=== PATIENT | male | born 1990 | race Caucasian/White ===

== ENCOUNTER 2016-10-27 18:36 | Inpatient (IN) | payer SELFPAY ==
[~2016-10-27] VITALS: Ht 172.7 cm; Wt 67.1 kg
[~2016-10-27 18:36] MED LIST: ACET-749 PO; AMPH30CA3 PO; MIRT45TA PO
[2016-10-27] MEDS ORDERED: SODIUM CHLORIDE 0.9% 1000ML 1,000 ML IV STA (18:59)
[2016-10-27] MEDS ORDERED: CIPROFLOXACIN 400MG / 200ML D5W IV STA (19:02)
[2016-10-27 19:29] LABS: BASO % 0.3 %; BASO ABS # 0.03 K/uL (0-0.2); COMPLETE YES; EOS % 0.2 %; HEMATOCRIT 47.6 % (42-52); IG% 0.2 %; LYMPH % 11.5 %; LYMPH ABS # 1.06 K/uL (1.2-3.4); MEAN CELL VOLUME 87.2 fL (80-100); MEAN CORPUSCULAR HEMOGLOBIN 27.8 pg (25-34); MEAN CORPUSCULAR HGB CONC 31.9 g/dl (32-36); NEUT % 76.8 %; PLATELET COUNT 228 K/uL (130-400); RED BLOOD COUNT 5.46 M/uL (4.7-6.1); WHITE BLOOD COUNT 9.21 K/uL (4.8-10.8)
[2016-10-27 19:40] LABS: INR 1.2 (0.9-1.1); PARTIAL THROMBOPLASTIN RATIO 1.3; PROTHROMBIN TIME (PATIENT) 12.6 SECONDS (9.0-12.0)
[2016-10-27 19:45] LABS: BUN/CREATININE RATIO 11.2 (10-20); CALCIUM 8.9 mg/dl (8.5-10.1); CREATININE 1.3 mg/dl (0.60-1.40); POTASSIUM 3.7 mmol/L (3.5-5.1)
[2016-10-27] MEDS ORDERED: CANNABIS INH (19:48)
[2016-10-27 19:49] LABS: URINE APPEARANCE CLEAR (CLEAR); URINE COLOR DK YELLOW; URINE NITRITE NEG (NEG); URINE SPECIFIC GRAVITY 1.033 (1.000-1.030); UROBILINOGEN NEG (NEG)
[2016-10-27 19:55] LABS: MANUAL MICROSCOPIC REQUIRED? NO; REVIEW REQ? NO; URINE BILIRUBIN NEG (NEG)
[2016-10-27 20:24] LABS: LYME DISEASE AB IGG NEG (NEG); LYME DISEASE AB IGM NEG (NEG)
--- NOTE | 2016-10-27 20:32 | DIAGNOSTIC IMAGING REPORT ---
ABDOMEN AND PELVIS CT WITHOUT CONTRAST CT DOSE: HISTORY: left abdominal pain eval for stone TECHNIQUE: Multiaxial CT images of the abdomen and pelvis were performed without the use of intravenous and oral contrast according to the standard department stone protocol. COMPARISON STUDY: None. FINDINGS: Focal left lower lobe consolidation consistent with a pneumonia. The right lung base is clear. No fractures within the visualized osseous structures. No renal or ureteral stones. No hydronephrosis. The bladder is unremarkable. Punctate calcifications in the left deep pelvis are consistent with phleboliths. Suboptimal evaluation for bowel pathology due to the lack of intravenous and oral contrast. However, there is no definite bowel wall thickening or obstruction. No retroperitoneal lymphadenopathy. The unenhanced liver, spleen, adrenal glands, pancreas, and gallbladder are unremarkable. IMPRESSION: 1. Focal consolidation within the left lower lobe consistent with a pneumonia. 2. No renal stones or hydronephrosis Electronically signed by: Dany Corado M.D. 10/27/2016 8:30 PM Dictated Date/Time: 10/27/2016 8:23 PM
--- NOTE | 2016-10-27 20:34 | DIAGNOSTIC IMAGING REPORT ---
LUMBAR SPINE CT WITH INTRAVENOUS CONTRAST CT DOSE: HISTORY: Back pain. eval for abscess TECHNIQUE: Multiaxial CT images of the lumbar spine were performed and reformatted in the sagittal and coronal plane following the use of intravenous contrast. COMPARISON: None. FINDINGS: No fracture or subluxation. Paraspinal soft tissues are unremarkable. Paraspinal soft tissues are unremarkable. Evaluation for an epidural abnormality such as abscesses is essentially nondiagnostic by CT. However, there are no definite abnormalities within the central canal and no definite central canal or neural foraminal narrowing. Disc spaces are preserved. No evidence for discitis/osteomyelitis by CT technique. IMPRESSION: No significant abnormality within the lumbar spine by CT technique. Electronically signed by: Dany Corado M.D. 10/27/2016 8:33 PM Dictated Date/Time: 10/27/2016 8:30 PM
--- NOTE | 2016-10-27 20:37 | DIAGNOSTIC IMAGING REPORT ---
LEFT FOOT CT CT DOSE: 1509.82 mGy.cm HISTORY: Left foot pain. left foot eval for foreign body/abscess TECHNIQUE: Multiaxial CT images of the left foot were performed and reformatted in the sagittal and coronal plane following the use of intravenous contrast. COMPARISON: None. FINDINGS: No fracture or dislocation within the left foot. No radiopaque foreign bodies. No soft tissue abscess identified. No evidence for osteomyelitis. IMPRESSION: No radiopaque foreign bodies or abscess within the left foot. Electronically signed by: Dany Corado M.D. 10/27/2016 8:41 PM Dictated Date/Time: 10/27/2016 8:33 PM
--- NOTE | 2016-10-27 21:11 | DIAGNOSTIC IMAGING REPORT ---
CHEST 2 VIEWS ROUTINE HISTORY: Abnormal CT. Fever. COMPARISON: Abdomen and pelvis CT 10/27/2016. FINDINGS: No pneumothorax. No pleural effusions. The heart is normal in size. The right lung is clear. Focal left lower lobe consolidation is again noted. IMPRESSION: Focal left lower lobe consolidation consistent with a pneumonia. Electronically signed by: Dany Corado M.D. 10/27/2016 9:10 PM Dictated Date/Time: 10/27/2016 9:09 PM
[2016-10-27] MEDS ORDERED: ACETAMINOPHEN 325 MG TAB PO ONE (21:16)
[2016-10-27] MEDS ORDERED: ACETAMINOPHEN 325 MG TAB PO PRN (21:30)
[2016-10-27] MEDS ORDERED: PIPERACILLIN/TAZOBACTAM 4.5 GM/100ML D5W IV STA (21:35)
[2016-10-27] MEDS ORDERED: DOXYCYCLINE HYCLATE 100 MG CAP PO ONE (21:48)
[2016-10-27] MEDS ORDERED: DIPHTHERIA/TETANUS/PERTUSSIS 0.5 ML SYR/VIAL IM. ONE (22:00)
[2016-10-27] MEDS ORDERED: PNEUMOCOCCAL POLYSACCHARIDES 25 MCG/0.5 ML VIAL/SYR IM. ONE (22:15)
[2016-10-27] MEDS ORDERED: INFLUENZA VIRUS QUAD VACCINE 0.5 ML SYR IM. ONE (22:15)
[2016-10-27] MEDS ORDERED: NSS + 20MEQ KCL 1000ML 1,000 ML IV ONE (22:15)
[2016-10-27] MEDS ORDERED: ONDANSETRON INJ 2 MG/ML 2 ML VIAL IV PRN (22:15)
[2016-10-27] MEDS ORDERED: KETOROLAC TROMETHAMINE 30 MG/ML VIAL IV PRN (22:15)
[2016-10-27] MEDS ORDERED: IBUPROFEN 200 MG TAB PO PRN (22:15)
[2016-10-27] MEDS ORDERED: MAGNESIUM SULFATE 1GM / D5W 1 GM in PREMIXED IN D5W 100 ML IV ONE (22:15)
[2016-10-27] MEDS ORDERED: PROMETHAZINE HCL INJ 12.5 MG in SODIUM CHLORIDE 0.9% 50ML 50 ML IV PRN (22:15)
[2016-10-27] MEDS: ENOXAPARIN 30 MG/0.3 ML SYR SQ SCH (23:15)
--- NOTE | 2016-10-27 23:22 | EMERGENCY ROOM VISIT NOTE ---
History Report prepared by Javid: Angelica Vera Under the Supervision of: Dr. Pito Lopez M.D. First contact with patient: 18:51 Chief Complaint: ILLNESS Stated Complaint: NAIL THROUGH L FT YESTERDAY, FEVER History of Present Illness The patient is a 26 year old male who presents to the Emergency Room with complaints of persistent lower back pain starting today. The patient stepped on a kecia nail yesterday. It went through his sneaker and into his left foot. He is unsure how far it went through, but he does not believe it came out the top of his foot. He pulled out the nail promptly afterwards. His foot was bleeding yesterday but has stopped. Today the pain is going up into his knee and lower back. His back pain is worse than the pain in his foot. He started feeling fatigued and slow today. He had a headache earlier today and almost vomited on the way to the ED. He reports neck stiffness and left abdominal pain. He has right elbow pain which is from a previous injury. He denies any cold symptoms, urinary symptoms, or cough. He has a history of hepatitis C. He denies any recent IV drug use. He admits to marijuana use. He has a family history of kidney stones, but has never had them himself. Source of History: patient Onset: today Position: back (lower) Quality: other (pain) Timing: other (persistent) Associated Symptoms: + headache, + nausea, + abdominal pain, + fatigue, No cough, No vomiting, No urinary symptoms Note: Pt reports left foot pain, left leg pain, neck stiffness. Review of Systems See HPI for pertinent positives & negatives. A total of 10 systems reviewed and were otherwise negative. Past Medical & Surgical Medical Problems: (1) ADHD (2) Pneumonia Family History Heart disease Hypertension Social History Smoking Status: Never Smoker Alcohol Use: none Drug Use: marijuana Marital Status: single Housing Status: lives with family Current/Historical Medications Scheduled [Cannabis], INH BID Allergies Coded Allergies: Methylphenidate (Verified Allergy, Severe, HIVES, 08/10/15) Physical Exam Vital Signs Date Time Temp Pulse Resp B/P (MAP) Pulse Ox O2 Delivery O2 Flow Rate FiO2 10/27/16 20:34 85 16 140/67 98 Room Air 10/27/16 19:20 96 16 131/73 97 Room Air 10/27/16 19:03 102 10/27/16 18:47 37.8 96 16 124/70 97 Room Air Physical Exam Constitutional: Vital signs reviewed. Eyes: Pupils are equal round reactive to light. Conjunctiva are noninjected. ENT: Pharynx is clear without erythema or exudate. Mucous membranes are moist. Neck supple without meningeal signs. Respiratory: Clear to auscultation bilaterally. Breath sounds are equal bilaterally. Cardiovascular: Regular rate and rhythm. No rubs or gallops. GI: Soft, nondistended with mild left mid abdominal tenderness. No guarding. Bowel sounds are present. Musculoskeletal: No midline tenderness to the thoracic spine, mild midline tenderness to the lower lumbar spine, no CVA tenderness. Puncture wound to the plantar aspect of the left foot between the first and second toe with diffuse tenderness, no evidence of lymphangitis or groin lymphadenopathy on the left side. Integumentary: No cyanosis. Neurological: The patient is awake and alert. No focal deficits. Psychiatric: Normal affect. Medical Decision & Procedures ER Provider Diagnostic Interpretation: X-ray results as stated below per interpretation by me and the radiologist. Radiology results as stated below per my review and the radiologist's interpretation: ABDOMEN AND PELVIS CT WITHOUT CONTRAST CT DOSE: HISTORY: left abdominal pain eval for stone TECHNIQUE: Multiaxial CT images of the abdomen and pelvis were performed without the use of intravenous and oral contrast according to the standard department stone protocol. COMPARISON STUDY: None. FINDINGS: Focal left lower lobe consolidation consistent with a pneumonia. The right lung base is clear. No fractures within the visualized osseous structures. No renal or ureteral stones. No hydronephrosis. The bladder is unremarkable. Punctate calcifications in the left deep pelvis are consistent with phleboliths. Suboptimal evaluation for bowel pathology due to the lack of intravenous and oral contrast. However, there is no definite bowel wall thickening or obstruction. No retroperitoneal lymphadenopathy. The unenhanced liver, spleen, adrenal glands, pancreas, and gallbladder are unremarkable. IMPRESSION: 1. Focal consolidation within the left lower lobe consistent with a pneumonia. 2. No renal stones or hydronephrosis Electronically signed by: Dany Corado M.D. 10/27/2016 8:30 PM Dictated Date/Time: 10/27/2016 8:[address] WITH INTRAVENOUS CONTRAST CT DOSE: HISTORY: Back pain. eval for abscess TECHNIQUE: Multiaxial CT images of the lumbar spine were performed and reformatted in the sagittal and coronal plane following the use of intravenous contrast. COMPARISON: None. FINDINGS: No fracture or subluxation. Paraspinal soft tissues are unremarkable. Paraspinal soft tissues are unremarkable. Evaluation for an epidural abnormality such as abscesses is essentially nondiagnostic by CT. However, there are no definite abnormalities within the central canal and no definite central canal or neural foraminal narrowing. Disc spaces are preserved. No evidence for discitis/osteomyelitis by CT technique. IMPRESSION: No significant abnormality within the lumbar spine by CT technique. Electronically signed by: Dany Corado M.D. 10/27/2016 8:33 PM Dictated Date/Time: 10/27/2016 8:[address] DOSE: 1509.82 mGy.cm HISTORY: Left foot pain. left foot eval for foreign body/abscess TECHNIQUE: Multiaxial CT images of the left foot were performed and reformatted in the sagittal and coronal plane following the use of intravenous contrast. COMPARISON: None. FINDINGS: No fracture or dislocation within the left foot. No radiopaque foreign bodies. No soft tissue abscess identified. No evidence for osteomyelitis. IMPRESSION: No radiopaque foreign bodies or abscess within the left foot. Electronically signed by: Dany Corado M.D. 10/27/2016 8:41 PM Dictated Date/Time: 10/27/2016 8:33 PM CHEST 2 VIEWS ROUTINE HISTORY: Abnormal CT. Fever. COMPARISON: Abdomen and pelvis CT 10/27/2016. FINDINGS: No pneumothorax. No pleural effusions. The heart is normal in size. The right lung is clear. Focal left lower lobe consolidation is again noted. IMPRESSION: Focal left lower lobe consolidation consistent with a pneumonia. Electronically signed by: Dany Corado M.D. 10/27/2016 9:10 PM Dictated Date/Time: 10/27/2016 9:09 PM Laboratory Results 10/27/16 19:15 Red Blood Count 5.46, Mean Corpuscular Volume 87.2, Mean Corpuscular Hemoglobin 27.8, Mean Corpuscular Hemoglobin Concent 31.9, Mean Platelet Volume 10.0, Neutrophils (%) (Auto) 76.8, Lymphocytes (%) (Auto) 11.5, Monocytes (%) (Auto) 11.0, Eosinophils (%) (Auto) 0.2, Basophils (%) (Auto) 0.3, Neutrophils # (Auto ) 7.07, Lymphocytes # (Auto) 1.06, Monocytes # (Auto) 1.01, Eosinophils # (Auto ) 0.02, Basophils # (Auto) 0.03 10/27/16 19:15 Test 10/27/16 19:05 10/27/16 19:15 10/27/16 19:20 Urine Color DK YELLOW Urine Appearance CLEAR (CLEAR) Urine pH 6.0 (4.5-7.5) Urine Specific [place] 1.033 (1.000-1.030) Urine Protein NEG (NEG) Urine Glucose (UA) NEG (NEG) Urine Ketones 3+ (NEG) Urine Occult Blood NEG (NEG) Urine Nitrite NEG (NEG) Urine Bilirubin NEG (NEG) Urine Urobilinogen NEG (NEG) Urine Leukocyte Esterase NEG (NEG) White Blood Count 9.21 K/uL (4.8-10.8) Red Blood Count 5.46 M/uL (4.7-6.1) Hemoglobin 15.2 g/dL (14.0-18.0) Hematocrit 47.6 % (42-52) Mean Corpuscular Volume 87.2 fL (80-100) Mean Corpuscular Hemoglobin 27.8 pg (25-34) Mean Corpuscular Hemoglobin Concent 31.9 g/dl (32-36) Platelet Count 228 K/uL (130-400) Mean Platelet Volume 10.0 fL (7.4-10.4) Neutrophils (%) (Auto) 76.8 % Lymphocytes (%) (Auto) 11.5 % Monocytes (%) (Auto) 11.0 % Eosinophils (%) (Auto) 0.2 % Basophils (%) (Auto) 0.3 % Neutrophils # (Auto) 7.07 K/uL (1.4-6.5) Lymphocytes # (Auto) 1.06 K/uL (1.2-3.4) Monocytes # (Auto) 1.01 K/uL (0.11-0.59) Eosinophils # (Auto) 0.02 K/uL (0-0.5) Basophils # (Auto) 0.03 K/uL (0-0.2) RDW Standard Deviation 40.6 fL (36.4-46.3) RDW Coefficient of Variation 12.6 % (11.5-14.5) Immature Granulocyte % (Auto) 0.2 % Immature Granulocyte # (Auto) 0.02 K/uL (0.00-0.02) Prothrombin Time 12.6 SECONDS (9.0-12.0) Prothromb Time International Ratio 1.2 (0.9-1.1) Activated Partial Thromboplast Time 32.7 SECONDS (21.0-31.0) Partial Thromboplastin Ratio 1.3 Anion Gap 7.0 mmol/L (3-11) Est Creatinine Clear Calc Drug Dose 81.7 ml/min Estimated GFR () 87.3 Estimated GFR (Non- 75.3 BUN/Creatinine Ratio 11.2 (10-20) Calcium Level 8.9 mg/dl (8.5-10.1) Magnesium Level 1.6 mg/dl (1.8-2.4) Total Bilirubin 0.7 mg/dl (0.2-1) Direct Bilirubin 0.2 mg/dl (0-0.2) Aspartate Amino Transf (AST/SGOT) 19 U/L (15-37) Alanine Aminotransferase (ALT/SGPT) 38 U/L (12-78) Alkaline Phosphatase 60 U/L (45-117) Total Protein 7.6 gm/dl (6.4-8.2) Albumin 4.1 gm/dl (3.4-5.0) Lipase 62 U/L (73-393) Lyme Disease IgG Antibody NEG (NEG) Lyme Disease IgM Antibody NEG (NEG) Bedside Lactic Acid Venous 0.91 mmol/L (0.90-1.70) Laboratory results as reviewed by me. Medications Administered Medications (Trade) Dose Ordered Sig/Timoteo Route Start Time Stop Time Status Last Admin Dose Admin Sodium Chloride 1,000 ml @ 999 mls/hr Q1H1M STAT IV 10/27/16 18:59 10/27/16 19:59 DC 10/27/16 19:37 999 MLS/HR Ciprofloxacin/ Dextrose (Cipro / D5W) 400 mg NOW STAT IV 10/27/16 19:02 10/27/16 19:03 DC 10/27/16 19:38 400 MG ED Course 1855: The patient was evaluated in room B5. A complete history and physical exam was performed. 1858: NSS 1000 ml @ 999 mls/hr IV. 1902: Ciprofloxacin/Dextrose 400 mg IV. 2104: I reevaluated the patient. I discussed the results and treatment plan with him. I recommended admission. He verbalized understanding and agreement. He will be evaluated for further management. 2114: I spoke with Boy Calzada [facility] hospitalist. We discussed the patient and his results. The patient will be further evaluated by him. Medical Decision This is a 26-year-old male presents with fever, back pain, foot pain and abdominal pain. Differential diagnosis includes abscess, cellulitis, osteomyelitis, kidney stone, UTI, pyelonephritis. I did perform a limited focused review of portions of the patient's old chart on the electronic medical record. The patient has had no recent pertinent visits to this hospital. Medication Reconciliation: I attest that I have personally reviewed the patient' s current medication list. Blood Pressure Screening: Patient was found to have a slightly elevated blood pressure due to circumstances. I do not believe that the patient requires hypertension monitoring. I did evaluate the patient as noted above. The patient is presenting with a fever today. He stepped on a kecia nail yesterday through his sneaker. He has pain into his leg as well as traveling into his back. He denies any shortness of breath, chest pain or cold symptoms. IV access was established. He did not want any pain medicines. I did order blood cultures. I did order a urinalysis. I did initially treat the patient with IV Cipro to cover for potential pseudomonal infection. I did order and review the patient's blood work as noted in the electronic medical record. I did order a CT of the foot, lumbar spine, and Abdomen and pelvis. I did review the images myself as well as the radiology report as described above. There is no evidence of abscess or retained foreign body in the foot. Lumbar spine CT is unremarkable. Abdominal and pelvic CT demonstrated a left lower lobe pneumonia. I did order and personally review the patient's chest x-ray as described above. He does have a left lower lobe infiltrate. I did discuss the test results with the patient. I did recommend hospitalization for IV antibiotics. I did treat him with IV Zosyn to cover his pneumonia and pseudomonas. I did discuss case with the hospitalist and human services case manager. Consults Time Called: 2109 Consulting Physician: Boy Calzada hospitalist Returned Call: 2114 I spoke with him. We discussed the patient and his results. The patient will be further evaluated by him. Impression Primary Impression: Left foot infection Additional Impressions: Puncture wound Left lower lobe pneumonia Scribe Attestation The scribe's documentation has been prepared under my direct and personally reviewed by me in its entirety. I confirm that the note above accurately reflects all work, treatment, procedures, and medical decision making performed by me. Departure Information Dispostion Being Evaluated By Hospitalist Referrals No Doctor, Assigned (PCP) Patient Instructions My [facility] Problem Qualifiers Additional Impressions: Left lower lobe pneumonia Pneumonia type: due to unspecified organism Qualified Codes: J18.1 - Lobar pneumonia, unspecified organism
[2016-10-27 23:28] VITALS: BP 126/75; PULSE 82; TEMP 37.4; O2SAT 96
[2016-10-28] VITALS (7 sets, daily range): BP systolic 120–138; BP diastolic 73–79; PULSE 77–83; TEMP 36.9–37.8; O2SAT 97–98; Ht 172.7 cm; Wt 67.1 kg
--- NOTE | 2016-10-28 01:28 | History and Physical ---
History & Physical Date & Time of Service: Oct 28, 2016 at 01:28 Chief Complaint: feve, chills, pleuritic R back pain Primary Care Physician: No Doctor, Assigned Px intends to re-establish care w/ Dr. Gunderson upon discharge. History of Present Illness Source: patient, family Yesterday patient stepped on a kecia nail with his left foot. Achy pain swelling. No consultations done. Today patient wasn't feeling well fever chills pleuritic left back pain w shortness of breath. Patient had emesis. No cough symptoms. At the emergency room patient received Zosyn for pneumonia/left foot infection. 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, admits to marijuana use, contractor Past history of opioid abuse as as per sister Smoking Status: Current Every Day Smoker Drug Use: marijuana Marital Status: single Immunizations Influenza Vaccine Date: Oct 28, 2016 History of Pneumococcal: No Other Immunizations: Seasonal flu vax 2002, DTAP 1990 Multi-Drug Resistant Organisms History of MDRO: No Allergies Coded Allergies: Methylphenidate (Verified Allergy, Severe, HIVES, 08/10/15) Home Medications Scheduled [Cannabis], INH BID Review of Systems as per HPI, all other ROS negative Physical Exam Vital Signs Date Time Temp Pulse Resp B/P (MAP) Pulse Ox O2 Delivery O2 Flow Rate FiO2 10/28/16 00:30 Room Air 10/28/16 00:00 Room Air 10/27/16 23:28 37.4 82 16 126/75 (92) 96 Room Air 10/27/16 22:12 85 16 136/69 96 10/27/16 20:34 85 16 140/67 98 Room Air 10/27/16 19:20 96 16 131/73 97 Room Air 10/27/16 19:03 102 10/27/16 18:47 37.8 96 16 124/70 97 Room Air General Appearance: + pertinent finding (anxious) Head: normocephalic Eyes: normal inspection, + pertinent finding ENT: + pertinent finding (poor dentition) Neck: supple Respiratory/Chest: lungs clear, + pertinent finding (decrease effort) Cardiovascular: regular rate, rhythm Abdomen/GI: soft Extremities/Musculoskelatal: + pertinent finding (tender swelling left foot plantar aspect) Neurologic/Psych: alert Skin: normal color Diagnostics Laboratory Results Results Past 24 Hours Test 10/27/16 19:05 10/27/16 19:15 10/27/16 19:20 Range/Units Urine Color DK YELLOW Urine Appearance CLEAR CLEAR Urine pH 6.0 4.5-7.5 Urine Specific [place] 1.033 1.000-1.030 Urine Protein NEG NEG Urine Glucose (UA) NEG NEG Urine Ketones 3+ NEG Urine Occult Blood NEG NEG Urine Nitrite NEG NEG Urine Bilirubin NEG NEG Urine Urobilinogen NEG NEG Urine Leukocyte Esterase NEG NEG White Blood Count 9.21 4.8-10.8 K/uL Red Blood Count 5.46 4.7-6.1 M/uL Hemoglobin 15.2 14.0-18.0 g/dL Hematocrit 47.6 42-52 % Mean Corpuscular Volume 87.2 80-100 fL Mean Corpuscular Hemoglobin 27.8 25-34 pg Mean Corpuscular Hemoglobin Concent 31.9 32-36 g/dl Platelet Count 228 130-400 K/uL Mean Platelet Volume 10.0 7.4-10.4 fL Neutrophils (%) (Auto) 76.8 % Lymphocytes (%) (Auto) 11.5 % Monocytes (%) (Auto) 11.0 % Eosinophils (%) (Auto) 0.2 % Basophils (%) (Auto) 0.3 % Neutrophils # (Auto) 7.07 1.4-6.5 K/uL Lymphocytes # (Auto) 1.06 1.2-3.4 K/uL Monocytes # (Auto) 1.01 0.11-0.59 K/uL Eosinophils # (Auto) 0.02 0-0.5 K/uL Basophils # (Auto) 0.03 0-0.2 K/uL RDW Standard Deviation 40.6 36.4-46.3 fL RDW Coefficient of Variation 12.6 11.5-14.5 % Immature Granulocyte % (Auto) 0.2 % Immature Granulocyte # (Auto) 0.02 0.00-0.02 K/uL Prothrombin Time 12.6 9.0-12.0 SECONDS Prothromb Time International Ratio 1.2 0.9-1.1 Activated Partial Thromboplast Time 32.7 21.0-31.0 SECONDS Partial Thromboplastin Ratio 1.3 Sodium Level 136 136-145 mmol/L Potassium Level 3.7 3.5-5.1 mmol/L Chloride Level 103 98-107 mmol/L Carbon Dioxide Level 26 21-32 mmol/L Anion Gap 7.0 3-11 mmol/L Blood Urea Nitrogen 15 7-18 mg/dl Creatinine 1.30 0.60-1.40 mg/dl Est Creatinine Clear Calc Drug Dose 81.7 ml/min Estimated GFR () 87.3 Estimated GFR (Non- 75.3 BUN/Creatinine Ratio 11.2 10-20 Random Glucose 98 70-99 mg/dl Calcium Level 8.9 8.5-10.1 mg/dl Magnesium Level 1.6 1.8-2.4 mg/dl Total Bilirubin 0.7 0.2-1 mg/dl Direct Bilirubin 0.2 0-0.2 mg/dl Aspartate Amino Transf (AST/SGOT) 19 15-37 U/L Alanine Aminotransferase (ALT/SGPT) 38 12-78 U/L Alkaline Phosphatase 60 45-117 U/L Total Protein 7.6 6.4-8.2 gm/dl Albumin 4.1 3.4-5.0 gm/dl Lipase 62 73-393 U/L Lyme Disease IgG Antibody NEG NEG Lyme Disease IgM Antibody NEG NEG Bedside Lactic Acid Venous 0.91 0.90-1.70 mmol/L Microbiology Results 10/27/16 Blood Culture, Received Pending 10/27/16 Blood Culture, Received Pending 10/27/16 Urine Culture, Received Pending Diagnostic Radiology CT abdomen and pelvis pneumonia left CT left foot no abscess no foreign bodies Impression Assessment and Plan AP Pneumonia Atypical versus aspiration No overt sepsis Traumatic nail puncture wound< left foot History ADHD not on meds, stable as per px Ongoing tobacco abuse past history opioid drug abuse as per family GMF Tetanus toxoid for traumatic nail puncture wound Doxycycline, Zosyn Nicotine patch DVT prophylaxis Lovenox subcutaneous Full code Advanced Directives Existing Living Will: No Existing Power of Power Line Installer And Repairer: No VTE Prophylaxis VTE Risk Assessment Done? Y/N: Yes Risk Level: Moderate
[2016-10-28] MEDS: PIPERACILL/TAZOBAC IV 3.375 GM in DEXTROSE 5% 100ML IV SCH ×3 (04:51→20:06)
[2016-10-28 06:56] LABS: BASO % 0.2 %; BASO ABS # 0.02 K/uL (0-0.2); COMPLETE YES; EOS % 0.2 %; HEMATOCRIT 43.9 % (42-52); IG% 0.3 %; LYMPH ABS # 0.62 K/uL (1.2-3.4); MEAN CELL VOLUME 87.5 fL (80-100); MEAN CORPUSCULAR HEMOGLOBIN 29.7 pg (25-34); MEAN CORPUSCULAR HGB CONC 33.9 g/dl (32-36); MEAN PLATELET VOLUME 10.5 fL (7.4-10.4); MONO % 11.3 %; PLATELET COUNT 197 K/uL (130-400); RED BLOOD COUNT 5.02 M/uL (4.7-6.1); WHITE BLOOD COUNT 10.25 K/uL (4.8-10.8)
[2016-10-28] MEDS: NICOTINE 7 MG/24 HR TDSY TD SCH (08:44)
[2016-10-28] MEDS: DOXYCYCLINE HYCLATE 100 MG CAP PO SCH ×2 (08:46→21:44)
[2016-10-28] MEDS ORDERED: PIPERACILL/TAZOBAC CONSULT ACTIVE PRN (09:00)
[2016-10-28] MEDS ORDERED: DIPHTHERIA/TETANUS/PERTUSSIS 0.5 ML SYR/VIAL IM. ONE (11:00)
--- NOTE | 2016-10-28 19:48 | Progress Note ---
Medicine Progress Note Date & Time of Visit: Oct 28, 2016 at 10:30 . Subjective Admitted last night with puncture wound left foot + pneumonia. Not sure when his last tetanus booster was. Afebrile. Minimal cough. No SOB. No nausea, vomiting, diarrhea. Persistent pain left foot. . Objective Last 8 Hrs Date Time Temp Pulse Resp B/P (MAP) Pulse Ox O2 Delivery O2 Flow Rate FiO2 10/28/16 10:10 97 Room Air 10/28/16 08:00 97 Room Air 10/28/16 07:32 37.4 81 18 138/73 (94) 97 Room Air Physical Exam: General- no distress Lungs- few rales left base Heart- RRR Abdomen- + BS, soft, nontender Extremities- no pretibial edema or calf tenderness; puncture wound plantar surface left foot near first MTP joint; no erythema or drainage Neuro- alert . Laboratory Results: Last 24 Hours Test 10/27/16 19:05 10/27/16 19:15 10/27/16 19:20 10/28/16 06:24 Urine Color DK YELLOW Urine Appearance CLEAR Urine pH 6.0 Urine Specific [place] 1.033 Urine Protein NEG Urine Glucose (UA) NEG Urine Ketones 3+ Urine Occult Blood NEG Urine Nitrite NEG Urine Bilirubin NEG Urine Urobilinogen NEG Urine Leukocyte Esterase NEG White Blood Count 9.21 K/uL 10.25 K/uL Red Blood Count 5.46 M/uL 5.02 M/uL Hemoglobin 15.2 g/dL 14.9 g/dL Hematocrit 47.6 % 43.9 % Mean Corpuscular Volume 87.2 fL 87.5 fL Mean Corpuscular Hemoglobin 27.8 pg 29.7 pg Mean Corpuscular Hemoglobin Concent 31.9 g/dl 33.9 g/dl Platelet Count 228 K/uL 197 K/uL Mean Platelet Volume 10.0 fL 10.5 fL Neutrophils (%) (Auto) 76.8 % 82.0 % Lymphocytes (%) (Auto) 11.5 % 6.0 % Monocytes (%) (Auto) 11.0 % 11.3 % Eosinophils (%) (Auto) 0.2 % 0.2 % Basophils (%) (Auto) 0.3 % 0.2 % Neutrophils # (Auto) 7.07 K/uL 8.40 K/uL Lymphocytes # (Auto) 1.06 K/uL 0.62 K/uL Monocytes # (Auto) 1.01 K/uL 1.16 K/uL Eosinophils # (Auto) 0.02 K/uL 0.02 K/uL Basophils # (Auto) 0.03 K/uL 0.02 K/uL RDW Standard Deviation 40.6 fL 41.0 fL RDW Coefficient of Variation 12.6 % 12.7 % Immature Granulocyte % (Auto) 0.2 % 0.3 % Immature Granulocyte # (Auto) 0.02 K/uL 0.03 K/uL Prothrombin Time 12.6 SECONDS Prothromb Time International Ratio 1.2 Activated Partial Thromboplast Time 32.7 SECONDS Partial Thromboplastin Ratio 1.3 Sodium Level 136 mmol/L Potassium Level 3.7 mmol/L Chloride Level 103 mmol/L Carbon Dioxide Level 26 mmol/L Anion Gap 7.0 mmol/L Blood Urea Nitrogen 15 mg/dl Creatinine 1.30 mg/dl Est Creatinine Clear Calc Drug Dose 81.7 ml/min Estimated GFR () 87.3 Estimated GFR (Non- 75.3 BUN/Creatinine Ratio 11.2 Random Glucose 98 mg/dl Calcium Level 8.9 mg/dl Magnesium Level 1.6 mg/dl Total Bilirubin 0.7 mg/dl Direct Bilirubin 0.2 mg/dl Aspartate Amino Transf (AST/SGOT) 19 U/L Alanine Aminotransferase (ALT/SGPT) 38 U/L Alkaline Phosphatase 60 U/L Total Protein 7.6 gm/dl Albumin 4.1 gm/dl Lipase 62 U/L Lyme Disease IgG Antibody NEG Lyme Disease IgM Antibody NEG Bedside Lactic Acid Venous 0.91 mmol/L Date/Time Source Procedure Growth Status 10/27/16 19:30 Blood Blood Culture Pending Received 10/27/16 19:15 Blood Blood Culture Pending Received 10/27/16 19:05 Urine , Clean Catch Urine Culture - Preliminary NO GROWTH - LESS THAN 1,000 COLONIES/... Resulted Assessment & Plan PNEUMONIA Chest x-ray demonstrated LLL infiltrate. Suspect aspiration pneumonia from N/V. Continue doxycycline + piperacillin / tazobactam. PUNCTURE WOUND LEFT FOOT No apparent abscess per CT. Continue doxycycline + piperacillin / tazobactam. TDAP ordered. TOBACCO USE Smoking cessation counseling. VTE PROPHYLAXIS SQ enoxaparin ordered- patient refused. SCD's ordered. Ambulate. DISPOSITION Expected discharge to home. Family Medicine follow-up with Dr. Gunderson. . Current Inpatient Medications: Current Inpatient Medications Medications (Trade) Dose Ordered Sig/Timoteo Route Start Time Stop Time Status Last Admin Dose Admin Acetaminophen (Tylenol Tab) 650 mg Q6H PRN PO 10/27/16 21:30 11/26/16 21:29 Doxycycline Hyclate (Vibramycin Cap) 100 mg BID PO 10/28/16 09:00 11/04/16 08:59 10/28/16 08:46 100 MG Piperacillin Sod/ Tazobactam Sod (Consult) 1 ea UD PRN N/A 10/28/16 09:00 11/27/16 08:59 Enoxaparin Sodium (Lovenox Inj) 30 mg DAILY@2100 SQ 10/27/16 23:15 11/26/16 23:14 Ketorolac Tromethamine (Toradol Inj) 30 mg Q6H PRN IV 10/27/16 22:15 11/01/16 22:14 Ondansetron HCl (Zofran Inj) 4 mg Q6H PRN IV 10/27/16 22:15 11/26/16 22:14 10/28/16 08:47 4 MG Ibuprofen (Advil Tab) 400 mg Q6H PRN PO 10/27/16 22:15 11/26/16 22:14 Nicotine (Nicoderm Cq 7 Mg Patch) 1 patch QAM TD 10/28/16 09:00 11/27/16 08:59 Miscellaneous (Remove Nicoderm Patch) 1 ea HS N/A 10/28/16 08:59 11/27/16 08:58 Promethazine HCl 12.5 mg/Sodium Chloride 50.5 ml @ 204 mls/hr Q6H PRN IV 10/27/16 22:15 11/26/16 22:14 Piperacillin Sod/ Tazobactam Sod 3.375 gm/Dextrose 115 ml @ 28.75 mls/ hr Q8@0400,1200,2000 IV 10/28/16 04:00 11/04/16 03:59 10/28/16 12:16 28.75 MLS/HR
[2016-10-28] MEDS: ENOXAPARIN 30 MG/0.3 ML SYR SQ SCH (21:00)
[2016-10-29] MEDS: PIPERACILL/TAZOBAC IV 3.375 GM in DEXTROSE 5% 100ML IV SCH (04:05)
[2016-10-29 06:59] LABS: HEMATOCRIT 43.9 % (42-52); MEAN CELL VOLUME 86.9 fL (80-100); MEAN CORPUSCULAR HEMOGLOBIN 29.9 pg (25-34); MEAN CORPUSCULAR HGB CONC 34.4 g/dl (32-36); MEAN PLATELET VOLUME 10.3 fL (7.4-10.4); PLATELET COUNT 171 K/uL (130-400); RED BLOOD COUNT 5.05 M/uL (4.7-6.1); WHITE BLOOD COUNT 6.82 K/uL (4.8-10.8)
[2016-10-29 07:16] VITALS: BP 130/84; PULSE 78; TEMP 37.1; O2SAT 98
[2016-10-29 07:34] LABS: BUN/CREATININE RATIO 8.2 (10-20); CREATININE 1.2 mg/dl (0.60-1.40); MAGNESIUM 1.8 mg/dl (1.8-2.4)
[2016-10-29] MEDS: NICOTINE 7 MG/24 HR TDSY TD SCH (07:44)
[2016-10-29] MEDS: DOXYCYCLINE HYCLATE 100 MG CAP PO SCH (07:45)
[2016-10-29 08:00] VITALS: O2SAT 98
[2016-10-29 11:05] VITALS: BP 130/84; PULSE 78; TEMP 37.1; O2SAT 98
--- NOTE | 2016-10-29 20:32 | Progress Note ---
Medicine Progress Note Date & Time of Visit: Oct 29, 2016 at 20:32. Objective Laboratory Results: Last 24 Hours Test 10/29/16 06:18 White Blood Count 6.82 K/uL Red Blood Count 5.05 M/uL Hemoglobin 15.1 g/dL Hematocrit 43.9 % Mean Corpuscular Volume 86.9 fL Mean Corpuscular Hemoglobin 29.9 pg Mean Corpuscular Hemoglobin Concent 34.4 g/dl RDW Standard Deviation 40.2 fL RDW Coefficient of Variation 12.6 % Platelet Count 171 K/uL Mean Platelet Volume 10.3 fL Sodium Level 134 mmol/L Potassium Level 4.0 mmol/L Chloride Level 102 mmol/L Carbon Dioxide Level 24 mmol/L Anion Gap 8.0 mmol/L Blood Urea Nitrogen 10 mg/dl Creatinine 1.20 mg/dl Est Creatinine Clear Calc Drug Dose 88.5 ml/min Estimated GFR () 96.1 Estimated GFR (Non- 83.0 BUN/Creatinine Ratio 8.2 Random Glucose 92 mg/dl Calcium Level 9.0 mg/dl Magnesium Level 1.8 mg/dl Assessment & Plan PNEUMONIA Chest x-ray demonstrated LLL infiltrate. Suspect aspiration pneumonia from N/V. Received doxycycline + piperacillin / tazobactam. PUNCTURE WOUND LEFT FOOT No apparent abscess per CT. Received doxycycline + piperacillin / tazobactam. TDAP administered. TOBACCO USE Smoking cessation counseling. VTE PROPHYLAXIS SQ enoxaparin ordered- patient refused. SCD's ordered. Ambulating. DISPOSITION Patient left hospital AMA. I was unable to discuss discharge plans. Will try to contact him. .
--- NOTE | 2016-10-30 18:10 | Discharge Summary ---
Discharge Summary Date of Service Oct 30, 2016. Discharge Summary Admission Date: Oct 27, 2016 at 21:21 Discharge Date: Oct 29, 2016 Discharge Disposition: Home (AMA) Principal Diagnosis: puncture wound and cellulitis left foot LLL pneumonia . Secondary Diagnoses/Problems: CT abdomen & pelvis CT lumbar spine CT left foot IV antibiotics . Vaccinations: TDAP 10/28/16 . Admission Information HPI (per Admitting provider): Yesterday patient stepped on a kecia nail with his left foot. Achy pain swelling. No consultations done. Today patient wasn't feeling well fever chills pleuritic left back pain w shortness of breath. Patient had emesis. No cough symptoms. At the emergency room patient received Zosyn for pneumonia/left foot infection. . Physical Exam (per Admitting): General Appearance: + pertinent finding (anxious) Head: normocephalic Eyes: normal inspection, + pertinent finding ENT: + pertinent finding (poor dentition) Neck: supple Respiratory/Chest: lungs clear, + pertinent finding (decrease effort) Cardiovascular: regular rate, rhythm Abdomen/GI: soft Extremities/Musculoskelatal: + pertinent finding (tender swelling left foot plantar aspect) Neurologic/Psych: alert Skin: normal color Hospital Course PNEUMONIA Chest x-ray demonstrated LLL infiltrate. Suspect aspiration pneumonia from N/V. Received doxycycline + piperacillin / tazobactam. PUNCTURE WOUND LEFT FOOT No apparent abscess per CT. Received doxycycline + piperacillin / tazobactam. TDAP administered. TOBACCO USE Smoking cessation counseling ordered. VTE PROPHYLAXIS SQ enoxaparin ordered- patient refused. SCD's ordered. Ambulating. DISPOSITION Patient left hospital AMA. I was unable to discuss discharge plans prior to discharge. Called contact phone number- no answer. Called his mother on 10/30. She referred me to his sister. Spoke with sister. She indicates that [facility] and received prescription for antibiotics. Advised to call if any concerns. . Total time spent on discharge = This includes examination of the patient, discharge planning, medication reconciliation, and communication with other providers. Discharge Instructions Patient left AMA. .
[2016-10-30] MEDS ORDERED: AMOX875T PO (18:15)
--- NOTE | 2016-10-30 18:17 | Discharge Instructions ---
Discharge Instructions Date of Service Oct 30, 2016. Admission Reason for Admission: pneumonia, cellulitis foot Discharge Discharge Diagnosis / Problem: pneumonia, cellulitis foot Discharge Goals Goal(s): Improve disease control Activity Recommendations Activity Limitations: resume your previous activity . Current Hospital Diet Patient's current hospital diet: Regular Diet Discharge Diet Recommended Diet: Regular Diet Pending Studies Studies pending at discharge: no Medical Emergencies . Who to Call and When: Medical Emergencies: If at any time you feel your situation is an emergency, please call 911 immediately. . Non-Emergent Contact Non-Emergency issues call your: Primary Care Provider, Hospital Doctor . . "Provider Documentation" section prepared by Franklyn Campbell. . VTE Core Measure Inpt VTE Proph given/why not?: Enoxaparin (Lovenox)SQ (refused), SCD's
== END 2016-10-29 12:46 | disposition left against medical advice (07) | DRG 602 ==
LOC: C.EDB 18:37 → C.MS2W 21:21 → ENRESERV 21:44
PROVIDERS: ADMIT Hospitalist; ATTEND Hospitalist
DX: L03.116 Cellulitis of left lower limb (principal); J69.0 Pneumonitis due to inhalation of food and vomit; S91.332A Puncture wound without foreign body, left foot, initial encounter; W45.0XXA Nail entering through skin, initial encounter; F17.210 Nicotine dependence, cigarettes, uncomplicated; F12.90 Cannabis use, unspecified, uncomplicated; Z53.21 Procedure and treatment not carried out due to patient leaving prior to being seen by health care provider; Z23 Encounter for immunization; Z86.19 Personal history of other infectious and parasitic diseases